=== PATIENT | male | born 1960 | race Caucasian/White ===

== ENCOUNTER 2021-02-16 14:08 | Inpatient (IN) ==
[2021-02-16] MEDS ORDERED: 0.9 % Sodium Chloride 1,000 ML IV ONE (15:08)
[2021-02-16] MEDS ORDERED: Ondansetron 4 MG/2 ML VIAL IVP ONE (15:08)
[2021-02-16] MEDS ORDERED: Morphine Sulfate 2 MG/ML SYRINGE IVP ONE (15:11)
[2021-02-16 15:21] LABS: Basophils # 0.1 K/mcL (0.0-0.2); Basophils % 0.4 %; Eosinophils # 0.1 K/mcL (0.0-0.6); Eosinophils % 0.4 %; Hematocrit 35.4 % (37.5-50.1); Hemoglobin 11.8 g/dL (12.9-16.9); Immature Granulocytes % 0.5 % (0-4); Lymphocytes # 2.1 K/mcL (0.6-4.6); Lymphocytes % 12.1 %; Mean Corpuscular HGB Conc 33.3 g/dL (31.6-35.5); Mean Corpuscular Hemoglobin 31.2 pg (28.0-33.3); Mean Corpuscular Volume 93.7 fL (83.0-100.0); Mean Platelet Volume 10.8 fL (9.4-12.4); Monocytes # 1.3 K/mcL (0.0-1.3); Monocytes % 7.4 %; Neutrophils # 13.5 K/mcL (1.6-8.9); Platelet Count 304 K/mcL (140-400); Red Blood Count 3.78 M/mcL (4.19-5.50); Red Cell Distribution Width 12.8 % (11.5-14.5); Segmented Neutrophils % 79.2 %
[2021-02-16 15:42] LABS: Alanine Aminotransferase 12 Units/L (7-52); Albumin 4.4 g/dL (3.5-5.7); Albumin/Globulin Ratio 1.5 (1.1-2.2); Alkaline Phosphatase 120 Units/L (34-104); Aspartate Amino Transferase 13 Units/L (13-39); BUN/Creatinine Ratio 13 (6-26); Bilirubin,Direct 0.2 mg/dL (0.0-0.2); Bilirubin,Total 1.2 mg/dL (0.3-1.0); Blood Urea Nitrogen 14 mg/dL (8-23); Calcium 9.5 mg/dL (8.6-10.3); Carbon Dioxide 27 mEq/L (23-29); Chloride 102 mEq/L (98-107); Glucose 113 mg/dL (70-105); Lipase 5 Units/L (11-82); Magnesium 2.1 mg/dL (1.6-2.6); Osmolality,Calculated 289 (280-300); Potassium 2.9 mEq/L (3.5-5.1); Sodium 139 mEq/L (136-145); Total Protein 7.4 g/dL (6.4-8.9); Troponin I < 0.03 ng/mL (< 0.04); eGFR For African Americans > 60 (> 60); eGFR For Non-African Americans > 60 (> 60)
[2021-02-16 16:14] LABS: INR 1.2; Prothrombin Time 13.6 Seconds (9.4-12.1)
[2021-02-16] MEDS ORDERED: cefTRIAXone 1,000 MG in Water for inj. (sterile) 10 ML IVP ONE (16:48)
[2021-02-16] MEDS ORDERED: Acetaminophen 325 MG TABLET PO PRN (17:41)
[2021-02-16] MEDS ORDERED: Ondansetron 4 MG/2 ML VIAL IVP PRN (17:41)
[2021-02-16] MEDS ORDERED: Naloxone 0.4 MG/ML INJ IVP PRN (17:41)
[2021-02-16] MEDS ORDERED: Melatonin 3 MG TABLET PO PRN (17:41)
[2021-02-16] MEDS ORDERED: Gadolinium Contrast Agent (WT Based) IV PRN (17:47)
[2021-02-16] MEDS ORDERED: Potassium Chloride 40 MEQ, Lidocaine 1% 2 ML in 0.9 % Sodium Chloride 500 ML IVPB ONE (17:57)
[2021-02-16] MEDS: Morphine Sulfate 2 MG/ML SYRINGE IVP PRN ×2 (18:05→22:10)
[2021-02-16] MEDS ORDERED: Pantoprazole 40 MG VIAL IVP ONE (18:24)
[2021-02-16] MEDS ORDERED: Simethicone 80 MG TAB.CHEW PO PRN (18:26)
[2021-02-16] MEDS: polyethylene glycoL 3350 17 GM POWD.PACK PO SCH (20:40)
[2021-02-16] MEDS: Sennosides/Docusate Sodium TABLET PO SCH (20:41)
[2021-02-16] MEDS ORDERED: Ipratropium/Albuterol Neb 3 ML IH PRN (21:10)
[2021-02-17] MEDS: Morphine Sulfate 2 MG/ML SYRINGE IVP PRN ×3 (02:15→19:20)
[2021-02-17 06:19] LABS: Basophils # 0.1 K/mcL (0.0-0.2); Basophils % 0.7 %; Eosinophils # 0.2 K/mcL (0.0-0.6); Eosinophils % 1.8 %; Hematocrit 32.1 % (37.5-50.1); Hemoglobin 10.4 g/dL (12.9-16.9); Immature Granulocytes % 0.5 % (0-4); Lymphocytes # 2.2 K/mcL (0.6-4.6); Lymphocytes % 19.5 %; Mean Corpuscular HGB Conc 32.4 g/dL (31.6-35.5); Mean Corpuscular Hemoglobin 30.6 pg (28.0-33.3); Mean Corpuscular Volume 94.4 fL (83.0-100.0); Mean Platelet Volume 10.7 fL (9.4-12.4); Monocytes # 0.8 K/mcL (0.0-1.3); Monocytes % 7.1 %; Neutrophils # 7.9 K/mcL (1.6-8.9); Platelet Count 268 K/mcL (140-400); Red Cell Distribution Width 12.8 % (11.5-14.5); Segmented Neutrophils % 70.4 %; White Blood Count 11.2 K/mcL (4.3-11.1)
[2021-02-17 06:40] LABS: % Iron Saturation 7 % (20-55); Alanine Aminotransferase 9 Units/L (7-52); Albumin 3.6 g/dL (3.5-5.7); Albumin/Globulin Ratio 1.6 (1.1-2.2); Alkaline Phosphatase 95 Units/L (34-104); Aspartate Amino Transferase 11 Units/L (13-39); BUN/Creatinine Ratio 12 (6-26); Bilirubin,Direct 0.2 mg/dL (0.0-0.2); Bilirubin,Indirect 0.7 mg/dL (0.0-1.0); Bilirubin,Total 0.9 mg/dL (0.3-1.0); Blood Urea Nitrogen 14 mg/dL (8-23); Calcium 8.5 mg/dL (8.6-10.3); Carbon Dioxide 25 mEq/L (23-29); Chloride 105 mEq/L (98-107); Globulin 2.2 g/dL (2.4-3.5); Glucose 94 mg/dL (70-105); Iron 18 mcg/dL (65-175); Osmolality,Calculated 288 (280-300); Sodium 139 mEq/L (136-145); Total Protein 5.8 g/dL (6.4-8.9); Transferrin 188 mg/dL (203-362); eGFR For African Americans > 60 (> 60); eGFR For Non-African Americans > 60 (> 60)
[2021-02-17 06:55] LABS: Ferritin 180 ng/mL (20-250)
[2021-02-17 07:00] LABS: Folate 12.9 ng/mL (3.0-16.0)
[2021-02-17] MEDS ORDERED: *HR* Enoxaparin 40 MG/0.4 ML SYRINGE SQ SCH (07:00)
[2021-02-17] MEDS ORDERED: cefTRIAXone 1,000 MG in 0.9 % Sodium Chloride Mini Bag 100 ML IVPB SCH ×2 (07:00→09:00)
[2021-02-17] MEDS ORDERED: Isovue-300 50ML VIAL ONE (07:15)
[2021-02-17] MEDS ORDERED: *HR* FentaNYL (PF) 100 MCG/2 ML VIAL IVP PRN (07:20)
[2021-02-17] MEDS ORDERED: *HR* OxyCODONE Immed Rel 5 MG TABLET PO PRN (07:20)
[2021-02-17] MEDS ORDERED: *HR* HYDROmorphone PF 0.5 MG/0.5 ML SYRINGE IVP PRN (07:20)
[2021-02-17] MEDS ORDERED: Lidocaine -MPF 2% 2 ML VIAL ONE (07:35)
[2021-02-17] MEDS ORDERED: *HR* FentaNYL (PF) 100 MCG/2 ML VIAL ONE (07:35)
[2021-02-17] MEDS ORDERED: Ondansetron 4 MG/2 ML VIAL ONE (07:35)
[2021-02-17] MEDS ORDERED: *HR* Midazolam HCl 2 MG/2 ML VIAL ONE (07:35)
[2021-02-17] MEDS ORDERED: *HR* Propofol 200 MG/20 ML VIAL IVP ONE (07:35)
[2021-02-17] MEDS: polyethylene glycoL 3350 17 GM POWD.PACK PO SCH ×2 (07:38→11:29)
[2021-02-17] MEDS: Sennosides/Docusate Sodium TABLET PO SCH ×3 (07:38→19:33)
[2021-02-17] MEDS ORDERED: Ondansetron 4 MG/2 ML VIAL IVP PRN (08:34)
[2021-02-17] MEDS ORDERED: Simethicone 80 MG TAB.CHEW PO PRN (08:34)
[2021-02-17] MEDS ORDERED: Gadolinium Contrast Agent (WT Based) IV PRN (08:34)
[2021-02-17] MEDS ORDERED: Melatonin 3 MG TABLET PO PRN (08:34)
[2021-02-17] MEDS ORDERED: Naloxone 0.4 MG/ML INJ IVP PRN (08:34)
[2021-02-17] MEDS ORDERED: Acetaminophen 325 MG TABLET PO PRN (08:34)
[2021-02-17] MEDS ORDERED: Ipratropium/Albuterol Neb 3 ML IH PRN (08:34)
[2021-02-17] MEDS ORDERED: *HR* Belladonna Alkaloids/Opium 30 MG RECTAL SUPPOSITORY RC PRN (08:34)
[2021-02-17 09:43] LABS: Prostate Specific Antigen 0.09 ng/mL (Less than 4.00)
[2021-02-17] MEDS: predniSONE 5 MG TABLET PO SCH (11:20)
[2021-02-17] MEDS: cefTRIAXone 1,000 MG in 0.9 % Sodium Chloride Mini Bag 100 ML IVPB SCH (11:21)
[2021-02-17 11:22] LABS: Immature Reticulocyte % 20.2 % (11.0-38.0); Retculocyte # 0.05 M/mcL (0.05-0.10); Reticulocyte % 1.5 % (1.6-2.8)
[2021-02-17] MEDS: (Abiraterone Acetate [Zytiga] 250 MG Tablet) PO SCH (11:29)
[2021-02-17] MEDS: Cyanocobalamin (B-12) 1,000 MCG TABLET PO SCH (14:30)
[2021-02-17] MEDS ORDERED: Potassium Chloride 20 MEQ, Lidocaine 1% 2 ML in 0.9 % Sodium Chloride 250 ML IVPB ONE (20:46)
[2021-02-17] MEDS ORDERED: Acetaminophen IV 1,000 MG/100 ML BAG IVPB ONE (21:19)
[2021-02-17] MEDS ORDERED: *HR* HYDROmorphone 2 MG TABLET PO ONE (23:28)
[2021-02-18 05:31] LABS: Hematocrit 33.5 % (37.5-50.1); Hemoglobin 10.9 g/dL (12.9-16.9); Mean Corpuscular HGB Conc 32.5 g/dL (31.6-35.5); Mean Corpuscular Hemoglobin 30.8 pg (28.0-33.3); Mean Corpuscular Volume 94.6 fL (83.0-100.0); Mean Platelet Volume 10.7 fL (9.4-12.4); Platelet Count 286 K/mcL (140-400); Red Blood Count 3.54 M/mcL (4.19-5.50); Red Cell Distribution Width 12.4 % (11.5-14.5); White Blood Count 13.1 K/mcL (4.3-11.1)
[2021-02-18 05:49] LABS: BUN/Creatinine Ratio 19 (6-26); Blood Urea Nitrogen 18 mg/dL (8-23); Calcium 8.9 mg/dL (8.6-10.3); Carbon Dioxide 26 mEq/L (23-29); Chloride 104 mEq/L (98-107); Glucose 108 mg/dL (70-105); Magnesium 1.9 mg/dL (1.6-2.6); Osmolality,Calculated 292 (280-300); Potassium 3.3 mEq/L (3.5-5.1); Sodium 140 mEq/L (136-145); eGFR For African Americans > 60 (> 60); eGFR For Non-African Americans > 60 (> 60)
[2021-02-18] MEDS: Cyanocobalamin (B-12) 1,000 MCG TABLET PO SCH (08:13)
[2021-02-18] MEDS: polyethylene glycoL 3350 17 GM POWD.PACK PO SCH (08:14)
[2021-02-18] MEDS: Iron Polysaccharide Complex 150 MG CAPSULE PO SCH (08:14)
[2021-02-18] MEDS: Sennosides/Docusate Sodium TABLET PO SCH ×2 (08:14→21:40)
[2021-02-18] MEDS: predniSONE 5 MG TABLET PO SCH (08:14)
[2021-02-18] MEDS: cefTRIAXone 1,000 MG in 0.9 % Sodium Chloride Mini Bag 100 ML IVPB SCH (08:26)
[2021-02-18] MEDS: (Abiraterone Acetate [Zytiga] 250 MG Tablet) PO SCH (08:26)
[2021-02-18] MEDS ORDERED: Magnesium Sulfate 1 GM/102 ML PIGGYBACK IVPB ONE (11:18)
[2021-02-18] MEDS: amLODIPine 5 MG TABLET PO SCH (12:42)
[2021-02-19 05:22] LABS: Hematocrit 31.4 % (37.5-50.1); Hemoglobin 10.3 g/dL (12.9-16.9); Mean Corpuscular HGB Conc 32.8 g/dL (31.6-35.5); Mean Corpuscular Volume 94.6 fL (83.0-100.0); Mean Platelet Volume 10.6 fL (9.4-12.4); Platelet Count 295 K/mcL (140-400); Red Blood Count 3.32 M/mcL (4.19-5.50); White Blood Count 12.3 K/mcL (4.3-11.1)
[2021-02-19 05:36] LABS: BUN/Creatinine Ratio 23 (6-26); Blood Urea Nitrogen 18 mg/dL (8-23); Calcium 8.8 mg/dL (8.6-10.3); Carbon Dioxide 27 mEq/L (23-29); Chloride 106 mEq/L (98-107); Glucose 91 mg/dL (70-105); Magnesium 1.7 mg/dL (1.6-2.6); Osmolality,Calculated 295 (280-300); Potassium 3.2 mEq/L (3.5-5.1); Sodium 142 mEq/L (136-145); eGFR For African Americans > 60 (> 60); eGFR For Non-African Americans > 60 (> 60)
[2021-02-19] MEDS: polyethylene glycoL 3350 17 GM POWD.PACK PO SCH (08:35)
[2021-02-19] MEDS: Sennosides/Docusate Sodium TABLET PO SCH (08:35)
[2021-02-19] MEDS: Iron Polysaccharide Complex 150 MG CAPSULE PO SCH (08:36)
[2021-02-19] MEDS: Cyanocobalamin (B-12) 1,000 MCG TABLET PO SCH (08:36)
[2021-02-19] MEDS: predniSONE 5 MG TABLET PO SCH (08:36)
[2021-02-19] MEDS: amLODIPine 5 MG TABLET PO SCH (08:38)
[2021-02-19] MEDS: cefTRIAXone 1,000 MG in 0.9 % Sodium Chloride Mini Bag 100 ML IVPB SCH (08:41)
[2021-02-19 10:44] VITALS: BP 173/81; PULSE 63; TEMP 98.6; O2SAT 97
== END 2021-02-19 15:19 | disposition home or self-care (01) | DRG 660 ==
LOC: EMEROOARM 14:08 → 3ANU 14:08 → SUATTDRO 18:04 → 3ANU 18:54
PROVIDERS: ADMIT Pharmacist; ATTEND Internal Medicine